=== PATIENT | male | born 1940 | race African-American/Black ===

== ENCOUNTER 2018-08-04 06:58 | Emergency (ER) | payer MEDICARE, OTHER ==
[~2018-08-04] VITALS: Ht 180.3 cm; Wt 86.2 kg
[2018-08-04] MEDS ORDERED: IBUPROFEN 600MG TABLET PO ONE (07:30)
[2018-08-04 09:00] VITALS: BP 112/62
== END 2018-08-04 09:00 | disposition home or self-care (01) ==
LOC: ER 06:58
DX: J06.9 Acute upper respiratory infection, unspecified (principal); F17.200 Nicotine dependence, unspecified, uncomplicated; E11.9 Type 2 diabetes mellitus without complications
CPT/HCPCS: 71045; 87804; 99284